=== PATIENT | female | born 1960 | race Hispanic/Latino ===

== ENCOUNTER 2017-03-26 16:00 | Emergency (ER) | payer BC ==
[2017-03-26] MEDS ORDERED: ONDANSETRON HCL 4 MG/2 ML VIAL ONE (17:33)
[2017-03-26] MEDS ORDERED: SODIUM CHLORIDE 0.9% 1000ML 1,000 ML IV ONE (17:35)
[2017-03-26 17:50] LABS: BASOPHILS % (AUTO) 0.8 % (0.0-5.0); EOSINOPHILS % (AUTO) 0.3 % (0.0-8.0); HEMATOCRIT 36.5 % (36-48); LYMPHOCYTES % (AUTO) 17.7 % (21.0-51.0); MEAN CORPUSCULAR VOLUME 88.6 fL (79-99); MONOCYTES % (AUTO) 3.3 % (3.0-13.0); NEUTROPHILS % (AUTO) 77.9 % (40.0-77.0); NUCLEATED RED BLOOD CELLS 0.1 % (0.0-0.19); PLATELET COUNT (AUTO) 311 K/uL (130-400); RED BLOOD CELL COUNT(AUTO) 4.12 MIL/uL (4.00-5.50); RED CELL DISTRIBUTION WIDTH 13.4 % (11.0-15.5); WHITE BLOOD COUNT (AUTO) 12.2 K/uL (4.8-10.8)
[2017-03-26 18:07] LABS: CREATININE 0.9 mg/dL (0.5-1.5); POTASSIUM 3.9 mmol/L (3.5-5.1)
[2017-03-26 18:12] LABS: TOTAL PROTEIN, SERUM 7.8 g/dL (6.0-8.3)
[2017-03-26] MEDS ORDERED: MECLIZINE HCL 25 MG TABLET ONE (18:31)
[2017-03-26 19:14] LABS: APPEARANCE,URINE Clear (CLEAR); BILIRUBIN,URINE Negative (NEGATIVE); COLOR,URINE Yellow (YELLOW); GLUCOSE, URINE (UA) Negative (NEGATIVE); KETONES,URINE 15 mg/dL (NEGATIVE); LEUKOCYTE ESTERASE ,URINE Small (NEGATIVE); NITRATE,URINE Negative (NEGATIVE); OCCULT BLOOD,URINE Negative (NEGATIVE); PH,URINE 7.5 (5.0-8.0); PROTEIN,URINE Negative (NEGATIVE); UROBILINOGEN,URINE 0.2 mg/dL (0.2-1.0)
[2017-03-26 19:22] LABS: BACTERIA,URINE None Seen /HPF (None Seen); RBC,URINE None Seen /HPF (0-1); SQUAMOUS EPITHELIAL CELL,UR None Seen /LPF (0-2); WBC,URINE 0-1 /HPF (0-1)
== END 2017-03-26 19:54 | disposition home or self-care (01) ==
LOC: EDH 16:00
DX: E86.0 Dehydration (principal); H81.399 Other peripheral vertigo, unspecified ear; I10 Essential (primary) hypertension; Z90.710 Acquired absence of both cervix and uterus; Z79.899 Other long term (current) drug therapy
CPT/HCPCS: 36415; 80053; 81001; 85025; 96361; 96374; 99285; J2405; J7030

== ENCOUNTER → 2023-07-25 | Outpatient (CLI) | payer BC, MEDICARE | END | disposition home or self-care (01) | LOC: RAH 08:55 | PROVIDERS: ATTEND Surgery | DX: K80.20 Calculus of gallbladder without cholecystitis without obstruction (principal) | CPT/HCPCS: 74181; S8037 ==

== ENCOUNTER 2023-09-07 07:49 | Day surgery (SDC) | payer BC, MEDICARE ==
[2023-09-04 15:02] VITALS: BP 118/56; PULSE 62; RESP 18
[2023-09-04 15:09] LABS: BASOPHILS % (AUTO) 1.1 % (0.0-5.0); EOSINOPHILS # (AUTO) 0.12 K/uL (0.00-0.70); EOSINOPHILS % (AUTO) 1.3 % (0.0-8.0); HEMATOCRIT 39.6 % (36-48); IMMATURE GRANULOCYTE ABSOLUTE 0.03 K/uL (0-1); LYMPHOCYTES # (AUTO) 3.1 K/uL (1.0-4.8); LYMPHOCYTES % (AUTO) 34.3 % (21.0-51.0); MEAN CORPUSCULAR HEMOGLOBIN 30.5 pg (27.0-33.0); MEAN CORPUSCULAR HGB CONC 33.8 g/dL (32.0-36.0); MONOCYTES # (AUTO) 0.5 K/uL (0.1-1.0); MONOCYTES % (AUTO) 5.8 % (3.0-13.0); NEUTROPHILS # (AUTO) 5.2 K/uL (1.8-7.7); NEUTROPHILS % (AUTO) 57.2 % (40.0-77.0); PLATELET COUNT (AUTO) 302 K/uL (130-400); RED CELL DISTRIBUTION WIDTH 13.2 % (11.0-15.5); WHITE BLOOD COUNT (AUTO) 9.1 K/uL (4.8-10.8)
[2023-09-04 15:20] LABS: INR 0.98 (0.85-1.15); PROTHROMBIN TIME 10.6 SEC (9.6-11.6)
[2023-09-04 15:21] LABS: PARTIAL THROMBOPLASTIN TIME 26.7 SEC (26.3-35.5)
[2023-09-07] VITALS (16 sets, daily range): BP systolic 124–179; BP diastolic 65–108; PULSE 52–99; RESP 10–22
[~2023-09-07] VITALS: Ht 160 cm; Wt 74.7 kg
[~2023-09-07 07:49] MED LIST: METO25 PO
[2023-09-07] MEDS: CEFAZOLIN SODIUM 2 GM VIAL ONE (08:25)
[2023-09-07] MEDS: LACTATED RINGERS 1000ML 1,000 ML IV ONE (08:25)
[2023-09-07 08:48] LABS: CREATININE 0.9 mg/dL (0.5-1.0); POTASSIUM 3.8 mmol/L (3.5-5.1)
[2023-09-07] MEDS ORDERED: LIDOCAINE PF 100MG/5ML (2%) SYRINGE 5ML ONE (09:18)
[2023-09-07] MEDS ORDERED: DEXAMETHASONE SOD PHOSPHATE 10MG/ML 1ML VIAL ONE (09:18)
[2023-09-07] MEDS ORDERED: PROPOFOL 10 MG/ML 20ML VIAL IV ONE (09:20)
[2023-09-07] MEDS ORDERED: NEOSTIGMINE METHYLSULFATE 1MG/ML IV ONE (09:20)
[2023-09-07] MEDS ORDERED: ONDANSETRON 4MG INJ ONE (09:20)
[2023-09-07] MEDS ORDERED: GLYCOPYRROLATE 0.2 MG/ML 5 ML VIAL ONE (09:20)
[2023-09-07] MEDS ORDERED: MIDAZOLAM HCL 1 MG/ML 2ML VIAL ONE (09:20)
[2023-09-07] MEDS ORDERED: SUCCINYLCHOLINE CHLORIDE 20 MG/ML 10 ML VIAL ONE (09:20)
[2023-09-07] MEDS ORDERED: ROCURONIUM BROMIDE 10MG/1ML 5ML VL ONE (09:21)
[2023-09-07] MEDS ORDERED: FENTANYL CITRATE PF 50 MCG/1 ML 2ML VIAL ONE (09:21)
[2023-09-07] MEDS ORDERED: INDOCYANINE GREEN 25 MG VIAL IJ ONE (10:06)
[2023-09-07] MEDS ORDERED: BUPIVACAINE/PF 0.25% 30ML VIAL IJ ONE (10:23)
[2023-09-07] MEDS ORDERED: FENTANYL CITRATE PF 50 MCG/1 ML 5ML AMP IV ONE (10:59)
[2023-09-07] MEDS: BUPIVACAINE/PF 0.25% 30ML VIAL IJ ONE (11:09)
[2023-09-07] MEDS: ACETAMINOPHEN 1,000 MG/100 ML VIAL IV ONE (12:15)
[2023-09-07] MEDS: ONDANSETRON 4MG INJ ONE ×2 (12:16→13:02)
[2023-09-07] MEDS: MEPERIDINE-PF 25 MG/ML SYG ONE (12:16)
[2023-09-07] MEDS: HYDRALAZINE 20MG/ML VIAL ONE (12:17)
[2023-09-07] MEDS: METOCLOPRAMIDE 10 MG/2 ML VIAL ONE (13:02)
== END 2023-09-07 13:34 | disposition home or self-care (01) ==
LOC: DAH 07:49
PROVIDERS: ATTEND Surgery
DX: K80.13 Calculus of gallbladder with acute and chronic cholecystitis with obstruction (principal); I10 Essential (primary) hypertension; K21.9 Gastro-esophageal reflux disease without esophagitis; K58.9 Irritable bowel syndrome, unspecified; M81.0 Age-related osteoporosis without current pathological fracture; E78.5 Hyperlipidemia, unspecified; Z90.710 Acquired absence of both cervix and uterus; Z88.8 Allergy status to other drugs, medicaments and biological substances; Z79.899 Other long term (current) drug therapy; Z79.01 Long term (current) use of anticoagulants
CPT/HCPCS: 47563; S2900; 36415; 80048; 85025; 85610; 85730; 93005; J0330; J0360; J1100; J2001; J2175; J2250; J2405; J2704; J2710; J2765; J3010; J3490; J7030; J7120; A4215; A4221; A4222; A4223; A4452; A4600; A4649; A4663; A4930; A6260; C1769; J0665; J0690